=== PATIENT | male | born 1975 | race Caucasian/White ===

== ENCOUNTER 2024-08-12 19:40 | Emergency (ER) | payer BC ==
[~2024-08-12] VITALS: Ht 182.9 cm; Wt 74.0 kg
[2024-08-12 20:23] VITALS: PULSE 85; RESP 16; O2SAT 95
[2024-08-12] MEDS: azithromycin 250mg tablet PO ONE (21:16)
[2024-08-12] MEDS: benzonatate 100mg capsule PO ONE (21:17)
[2024-08-12] MEDS ORDERED: BENZ-38 PO (22:22)
[2024-08-12] MEDS ORDERED: AZIT-164 PO (22:22)
[2024-08-12 23:17] VITALS: TEMP 100.7
== END 2024-08-12 23:19 | disposition home or self-care (01) ==
LOC: EDBD 19:41 → ER 19:41
DX: J18.9 Pneumonia, unspecified organism (principal); Z79.2 Long term (current) use of antibiotics
CPT/HCPCS: 71045; 99283